=== PATIENT | male | born 1950 ===

== ENCOUNTER 2021-06-09 11:52 | Outpatient (CLI) | payer OTHER ==
[2021-06-10 08:26] LABS: SARS-CoV-2 PCR by NAA Not Detected (NotDetected)
== END 2021-06-09 11:53 | disposition home or self-care (01) ==
LOC: CSHLAB 11:52
PROVIDERS: ATTEND Internal Medicine Gastroenterology
DX: Z20.822 Contact with and (suspected) exposure to COVID-19 (principal); K62.5 Hemorrhage of anus and rectum; K63.5 Polyp of colon
CPT/HCPCS: U0003; U0005

== ENCOUNTER 2021-06-12 05:49 | Day surgery (SDC) | payer OTHER ==
[2021-06-04 14:23] VITALS: BMI 31.8
[2021-06-12] MEDS ORDERED: Lidocaine 1% MPF 2 ML VIAL ONE (06:43)
[2021-06-12 07:32] LABS: Anion Gap 12 mmol/L (10-20); BUN (Urea Nitrogen) 44 mg/dL (8.4-25.7); Calc. Creatinine Clearance 37 mL/min (70-130); Calcium 8.2 mg/dL (7.8-10.44); Carbon Dioxide 21 mmol/L (23-31); Chloride 105 mmol/L (98-107); Glucose 126 mg/dL (80-115); Potassium 4.2 mmol/L (3.5-5.1); Sodium 134 mmol/L (136-145)
[2021-06-12] MEDS ORDERED: Ketamine 50 MG/ML (10ML VIAL) ONE (07:37)
[2021-06-12] MEDS ORDERED: PROPOFOL 20 ML ONE ×2 (07:40→07:59)
[2021-06-12] MEDS ORDERED: Lidocaine 1% PF 5 ML VIAL ONE (07:59)
[2021-06-12] MEDS ORDERED: Fentanyl 100 MCG/2 ML VIAL ONE (08:00)
[2021-06-12] MEDS ORDERED: ePHEDrine Sulfate 50 MG/10 ML VIAL ONE (08:04)
== END 2021-06-12 10:20 | disposition home or self-care (01) ==
LOC: CSHSDC 05:49
PROVIDERS: ATTEND Internal Medicine Gastroenterology
PROC: 0DBM8ZZ Excision of Descending Colon, Via Natural or Artificial Opening Endoscopic (ICD-10-PCS; principal; 2021-06-12)
DX: K62.5 Hemorrhage of anus and rectum (principal); D12.4 Benign neoplasm of descending colon; D12.3 Benign neoplasm of transverse colon; K64.9 Unspecified hemorrhoids; K62.7 Radiation proctitis; I10 Essential (primary) hypertension; E11.9 Type 2 diabetes mellitus without complications; E78.5 Hyperlipidemia, unspecified; I25.10 Atherosclerotic heart disease of native coronary artery without angina pectoris; F32.A Depression, unspecified; M10.9 Gout, unspecified
CPT/HCPCS: 36415; 36416; 80048; 88305; J2704; J3010